=== PATIENT | male | born 1995 | race Two or more races ===

== ENCOUNTER 2018-05-06 07:15 | Outpatient (CLI) | payer OTHER ==
[~2018-05-06 07:15] MED LIST: GILTUSS LIQUID237 ML PO
== END 2018-05-06 17:00 | disposition home or self-care (01) ==
LOC: TOM 07:15
DX: C62.11 Malignant neoplasm of descended right testis (principal)

== ENCOUNTER 2019-03-03 07:17 | Outpatient (CLI) | payer OTHER | END 2019-03-03 07:23 | disposition home or self-care (01) | LOC: MRI 07:17 | DX: C62.11 Malignant neoplasm of descended right testis (principal) | CPT/HCPCS: 72197; 74183 ==

== ENCOUNTER 2020-03-02 07:55 | Outpatient (CLI) | payer OTHER | END 2020-03-02 07:57 | disposition home or self-care (01) | LOC: MRI 07:55 | PROVIDERS: ATTEND Urology | DX: R31.1 Benign essential microscopic hematuria (principal) | CPT/HCPCS: 72196; 74182 ==

== ENCOUNTER → 2020-11-07 11:17 | Outpatient (CLI) | payer OTHER | END | disposition home or self-care (01) | LOC: LAB 11:17 | PROVIDERS: ATTEND Radiology Diagnostic Radiology | DX: N20.0 Calculus of kidney (principal) ==

== ENCOUNTER 2022-01-02 08:47 | Outpatient (CLI) | payer OTHER | END 2022-01-02 08:58 | disposition home or self-care (01) | LOC: RAD 08:47 | PROVIDERS: ATTEND Internal Medicine Geriatric Medicine | DX: I11.9 Hypertensive heart disease without heart failure (principal); R06.02 Shortness of breath ==

== ENCOUNTER 2022-02-27 09:44 | Outpatient (CLI) | payer OTHER | END 2022-02-27 10:06 | disposition home or self-care (01) | LOC: MRI 09:44 | PROVIDERS: ATTEND Urology | DX: N30.00 Acute cystitis without hematuria (principal); R36.0 Urethral discharge without blood; C62.11 Malignant neoplasm of descended right testis | CPT/HCPCS: 72197; 74183 ==

== ENCOUNTER 2023-02-22 19:25 | Emergency (ER) | payer OTHER ==
[~2023-02-22] VITALS: Ht 175.3 cm; Wt 99.3 kg
== END 2023-02-22 23:10 | disposition home or self-care (01) ==
LOC: ER 19:25
DX: K29.70 Gastritis, unspecified, without bleeding (principal)

== ENCOUNTER 2023-03-11 06:44 | Outpatient (CLI) | payer OTHER | END 2023-03-11 07:10 | disposition home or self-care (01) | LOC: MRI 06:44 | PROVIDERS: ATTEND Urology | DX: C62.11 Malignant neoplasm of descended right testis (principal); R31.1 Benign essential microscopic hematuria | CPT/HCPCS: 72197; 74183 ==